=== PATIENT | female | born 1925 | race Caucasian/White ===

== ENCOUNTER → 2017-05-07 | Outpatient (CLI) | payer OTHER | LOC: BMCIMAGING 08:48 | PROVIDERS: ATTEND Internal Medicine | DX: J44.9 Chronic obstructive pulmonary disease, unspecified (principal) ==

== ENCOUNTER → 2017-05-14 | Outpatient (CLI) | payer OTHER ==
[~2017-05-14] MED LIST: IOPAMIDOL (ISOVUE 370) 100 ML BTL IV ONE
== END ==
LOC: FIMAGING 08:39
PROVIDERS: ATTEND Internal Medicine
DX: I27.20 Pulmonary hypertension, unspecified (principal); I51.7 Cardiomegaly; I25.10 Atherosclerotic heart disease of native coronary artery without angina pectoris
CPT/HCPCS: 71275; Q9967

== ENCOUNTER 2017-06-12 12:58 | Inpatient (IN) | payer OTHER ==
[2017-06-12] MEDS ORDERED: methylPREDNISolone SOD SUCC 125 MG/2 ML VIAL IVP ONE (13:36)
[2017-06-12] MEDS ORDERED: IPRATROPIUM/ALBUTEROL 3 ML DEYVIAL IH ONE (13:36)
--- NOTE | 2017-06-12 13:40 | EDPHY ---
H & P Time Seen by Provider: 06/12/17 13:21 HPI/ROS: CHIEF COMPLAINT: Shortness of breath HISTORY OF PRESENT ILLNESS: Patient is an 89-year-old female with a history of reduced ejection fraction and chronic pulmonary disease who presents emergency department with increasing shortness of breath. Patient states that she was diagnosed with a chronic pulmonary disease and has been wearing oxygen at night for a long time. She does not have a specific diagnosis to her pulmonary disease. Recently her became ill with bronchitis. 2 days ago she developed a cough. She now having increasing shortness of breath and wheezing. Her dyldhmrb-to-vem who is a physician went to see her today. She noticed that she desaturated to 70s while on 4 L of oxygen. Patient has been wearing her oxygen during the day due to her increased shortness of breath. Patient denies any chest pain. No fevers or chills. No abdominal pain. No nausea or vomiting. No leg pain or swelling. REVIEW OF SYSTEMS: My complete review of systems is negative except as mentioned in the HPI. Past Medical/Surgical History: Includes macular degeneration, pulmonary disease Past surgical history: Appendectomy, hernia repair Social history: The patient does not smoke but she has been exposed to secondhand smoke. Smoking Status: Never smoked Physical Exam: 36.9, 188/121, 101, 24 GENERAL: No acute distress, alert. HEENT: Eyes normal to inspection, normal pharynx, no signs of dehydration. NECK: [No thyromegaly, no lymphadenopathy, supple. RESPIRATORY: Diffuse wheezing. No rales or rhonchi. No accessory muscle use. CVS: Regular rate and rhythm, no rubs, murmurs, or gallops. ABDOMEN: Soft, nontender, nondistended, no organomegaly. BACK: Normal to inspection, no CVA tenderness. SKIN: Normal color, no rash, warm, dry. No pallor. EXTREMITIES: No pedal edema, no calf tenderness, no Homans sign or cords, no joint swelling. NEURO/PSYCH: Alert and oriented x3, normal mood and affect, normal motor sensory exam. Constitutional: Initial Vital Signs Temperature (C) 36.9 C 06/12/17 13:12 Heart Rate 101 H 06/12/17 13:12 Respiratory Rate 24 H 06/12/17 13:12 Blood Pressure 188/121 H 06/12/17 13:12 O2 Delivery Mode Room Air O2 (L/minute) 4 Allergies/Adverse Reactions: aspirin Allergy (Verified 06/12/17 13:12) Penicillins Allergy (Verified 06/12/17 13:12) Medical Decision Making - Diagnostics Imaging Results: Imaging Impressions Chest X-Ray 06/12/17 13:36 Impression: 1. Hyperexpanded lungs suggestive of underlying COPD similar to the prior study. 2. No new abnormality seen within the chest. ED Course/Re-evaluation: In the emergency department I discussed possible etiologies with the patient. I answered all her questions. I reviewed the patient's medical record that she brought with her. Of note the patient had a recent cardiac echo. This showed mild pulmonary hypertension as well as a reduced ejection fraction of 40-45%. The previous imaging showed findings consistent with cardiomegaly and COPD. The patient was given Solu-Medrol 125 mg IV and a DuoNeb. Laboratory studies, EKG, chest x-ray were ordered. I reviewed the patient's laboratory studies. Her CBC was normal. Chemistry panel showed normal renal function. Troponin was negative. BNP was elevated at 1400. D-dimer was 0.51. Chest x-ray: Please refer the dictated report. No focal infiltrate. COPD. I discussed the results with the patient and family. I answered all her questions. I discussed case with Dr. Franks. He went to the patient's room to evaluate the patient. He will admit the patient for further care. Sinus rhythm at 87. Normal axis. Left atrial abnormality. Poor R-wave progression. Differential Diagnosis: My differential includes but is not limited to bronchitis, pneumonia, empyema, COPD exacerbation, CHF, bacteremia, sepsis, electrolyte abnormality, sugar abnormality - Data Points Laboratory Results: Laboratory Results 06/12/17 14:00 06/12/17 14:00 06/12/17 06/12/17 06/12/17 14:00 14:00 14:00 WBC RBC Hgb Hct MCV MCH MCHC RDW Plt Count MPV Neut % (Auto) Lymph % (Auto) [place] % (Auto) Eos % (Auto) Baso % (Auto) Nucleat RBC Rel Count Absolute Neuts (auto) Absolute Lymphs (auto) Absolute Monos (auto) Absolute Eos (auto) Absolute Basos (auto) Absolute Nucleated RBC Immature Gran % Immature Gran # PT 12.7 SEC SEC (12.0-15.0) INR 0.93 (0.83-1.16) APTT 26.7 SEC SEC (23.0-38.0) D-Dimer 0.51 ug/mLFEU H ug/mLFEU (0.00-0.50) VBG Lactic Acid 0.8 mmol/L mmol/L (0.7-2.1) Sodium 135 mEq/L mEq/L (135-145) Potassium 4.6 mEq/L mEq/L (3.5-5.2) Chloride 93 mEq/L L mEq/L (97-110) Carbon Dioxide 34 mEq/l H mEq/l (22-31) Anion Gap 8 mEq/L mEq/L (8-16) BUN 15 mg/dL mg/dL (7-23) Creatinine 0.5 mg/dL L mg/dL (0.6-1.0) Estimated GFR > 60 Glucose 94 mg/dL mg/dL (70-100) Calcium 8.4 mg/dL L mg/dL (8.5-10.4) Total Bilirubin 0.5 mg/dL mg/dL (0.1-1.4) Conjugated Bilirubin 0.3 mg/dL mg/dL (0.0-0.5) Unconjugated Bilirubin 0.2 mg/dL mg/dL (0.0-1.1) AST 31 IU/L IU/L (14-46) ALT 30 IU/L IU/L (9-52) Alkaline Phosphatase 96 IU/L IU/L (38-126) Troponin I < 0.012 ng/mL ng/mL (0.000-0.034) NT-Pro-B Natriuret Pep 1410 pg/mL H pg/mL (0-450) Total Protein 6.8 g/dL g/dL (6.3-8.2) Albumin 3.9 g/dL g/dL (3.5-5.0) 06/12/17 14:00 WBC 4.39 10^3/uL 10^3/uL (3.80-9.50) RBC 4.52 10^6/uL 10^6/uL (4.18-5.33) Hgb 14.3 g/dL g/dL (12.6-16.3) Hct 43.3 % % (38.0-47.0) MCV 95.8 fL fL (81.5-99.8) MCH 31.6 pg pg (27.9-34.1) MCHC 33.0 g/dL g/dL (32.4-36.7) RDW 12.2 % % (11.5-15.2) Plt Count 144 10^3/uL L 10^3/uL (150-400) MPV 9.6 fL fL (8.7-11.7) Neut % (Auto) 72.6 % % (39.3-74.2) Lymph % (Auto) 13.7 % L % (15.0-45.0) [place] % (Auto) 11.6 % % (4.5-13.0) Eos % (Auto) 1.4 % % (0.6-7.6) Baso % (Auto) 0.5 % % (0.3-1.7) Nucleat RBC Rel Count 0.0 % % (0.0-0.2) Absolute Neuts (auto) 3.19 10^3/uL 10^3/uL (1.70-6.50) Absolute Lymphs (auto) 0.60 10^3/uL L 10^3/uL (1.00-3.00) Absolute Monos (auto) 0.51 10^3/uL 10^3/uL (0.30-0.80) Absolute Eos (auto) 0.06 10^3/uL 10^3/uL (0.03-0.40) Absolute Basos (auto) 0.02 10^3/uL 10^3/uL (0.02-0.10) Absolute Nucleated RBC 0.00 10^3/uL 10^3/uL (0-0.01) Immature Gran % 0.2 % % (0.0-1.1) Immature Gran # 0.01 10^3/uL 10^3/uL (0.00-0.10) PT INR APTT D-Dimer VBG Lactic Acid Sodium Potassium Chloride Carbon Dioxide Anion Gap BUN Creatinine Estimated GFR Glucose Calcium Total Bilirubin Conjugated Bilirubin Unconjugated Bilirubin AST ALT Alkaline Phosphatase Troponin I NT-Pro-B Natriuret Pep Total Protein Albumin Microbiology Results: MICROBIOLOGY 06/12/17 13:40 Nasal, Sinus - Swab Respiratory Panel (PCR) - Final Human Metapneumovirus Medications Given: Discontinued Medications Albuterol/Ipratropium (Duoneb) 3 ml IH EDNOW ONE Stop: 06/12/17 13:37 Last Admin: 06/12/17 14:04 Dose: 3 ml Methylprednisolone Sodium Succinate (Solu-Medrol) 125 mg IVP EDNOW ONE Stop: 06/12/17 13:37 Last Admin: 06/12/17 14:04 Dose: 125 mg Departure - Departure Disposition: [facility] Inpatient Acute Clinical Impression: Shortness of breath, Elevated brain natriuretic peptide (BNP) level COPD (chronic obstructive pulmonary disease) Qualifiers: COPD type: unspecified COPD Qualified Code(s): J44.9 - Chronic obstructive pulmonary disease, unspecified Condition: Good
--- NOTE | 2017-06-12 13:43 | CPEKG ---
Heart Rate: 87 RR Interval: 690 P-R Interval: 152 QRSD Interval: 108 QT Interval: 368 QTC Interval: 443 P [place]: 75 QRS [place]: -22 T Wave [place]: 70 EKG Severity - ABNORMAL ECG - EKG Impression: SINUS RHYTHM EKG Impression: LEFT ATRIAL ABNORMALITY EKG Impression: ABNRM R PROG, CONSIDER ASMI OR LEAD PLACEMENT Electronically Signed By: Itzel Veronica 12-Jun-2017 21:08:41
[2017-06-12 14:12] LABS: PLATELET COUNT 144 10^3/uL (150-400)
[2017-06-12 14:21] LABS: INR 0.93 (0.83-1.16); PROTIME(PATIENT) 12.7 SEC (12.0-15.0)
[2017-06-12] MEDS ORDERED: AZITHROMYCIN 250 MG TAB PO ONE ×2 (15:21→15:28)
[2017-06-12] MEDS ORDERED: ONDANSETRON 4 MG/2 ML VIAL IVP PRN (15:23)
[2017-06-12] MEDS ORDERED: ACETAMINOPHEN 325 MG TAB PO PRN (15:23)
[2017-06-12] MEDS ORDERED: ONDANSETRON DISINTEGRATING 4 MG TAB PO PRN (15:23)
--- NOTE | 2017-06-12 15:50 | GHP ---
[f rep st] HISTORY AND PHYSICAL DATE OF ADMISSION: 06/12/2017 CHIEF COMPLAINT: Shortness of breath. HISTORY OF PRESENT ILLNESS: This is an 89-year-old female with very limited past medical history, wh o presents with shortness of breath. Her had bronchitis for the past week or so. He is now recovering. She got a cough about 3 days ago. It has progressed somewhat. She is occasionally coug johnnie up some mucus plugs. She notes that she has not had any fevers. Her daughter, who is a physici an at [employer], went over to her house. She is normally using nocturnal oxygen. However, she needed 4 L at rest. When she ambulated on 4 L, she dropped down into the 70 percents. She has a mildly low ejection fraction at 40%-45%. I reviewed her echocardiogram, which shows ejection fraction as above, in addition to pulmonary hypertension with an RVSP of 50-60. She has been worked up by her primary care physician, Dr. Young recently for her breathing complaints. She had a CT angio, which showed 1 bulla, however no emphysema. Chest x-ray is hyperexpanded consistent with COPD. She never smoked, a lthough she was exposed to some secondhand smoke. PAST MEDICAL/SURGICAL HISTORY: 1. Recent breathing issues as above. 2. Pulmonary hypertension. 3. Chronic respiratory failure, on nocturnal oxygen. 4. Tachycardia, for which she is prescribed metoprolol. 5. Macular degeneration. 6. Hypothyroid. 7. Osteoarthritis. 8. Appendectomy. 9. Hernia operation. MEDICATIONS: Please see medication reconciliation. ALLERGIES: Aspirin and penicillin. FAMILY HISTORY: Reviewed and noncontributory. SOCIAL HISTORY: She lives with her . They do not have help at home. She does not drink or s moke. REVIEW OF SYSTEMS: A 10-point review of systems is conducted and is negative except per HPI. PHYSICAL EXAM: VITAL SIGNS: Blood pressure 188/121, heart rate 101, respiration rate 24, satting at 98% on 4 L, temperature is 36.9. GENERAL: The patient is a very pleasant female who is accompanied by her son and [id number]. She is in no significant distress. HEENT: Normocephalic, atraumat ic. CARDIOVASCULAR: Regular rate and rhythm. There are no murmurs, rubs, or gallops. PULMONARY: Wet sounding cough. She is in mild respiratory distress with increased work of breathing. She has d iffuse wheezes with some rhonchi in her bilateral lung hastings. ABDOMEN: Soft, nontender, nondistend ed. SKIN: No rash. : No Flores. NEUROLOGIC: Alert and oriented x3. She is moving all extremit ies. PSYCHIATRIC: Normal mood and affect. LABS: Platelets are 144, INR 0.93, D-dimer is 0.51, lactate is 0.8, bicarb is 34, creatinine 0.5, BN P is 1,410. DATA: 1. I discussed this with Dr. Regan. We will admit to Med/Surg. 2. I personally viewed and interpreted her chest x-ray. This shows hyperexpanded lung hastings. No c ardiomegaly. No acute infiltrates. 3. I personally viewed and interpreted her EKG. This shows sinus rhythm. She has borderline R-wave progression. IMPRESSION AND PLAN: An 89-year-old female, with acute on chronic respiratory failure. 1. Acute on chronic respiratory failure: We will treat for chronic obstructive pulmonary disease ex acerbation. I suspect she has chronic obstructive lung disease with an acute viral bronchitis. We w ill place her on oxygen and follow closely. D-dimer is 0.51, which is negative given her age. 2. Chronic obstructive pulmonary disease with acute exacerbation: She does not have a significant s moking history. However, findings consistent with acute on chronic lung obstructive lung disease, in cludes wheezing, elevated bicarb, hyperexpansion on chest x-ray. We will treat her with prednisone, nebulizers, check respiratory pathogen polymerase chain reaction. 3. Pulmonary hypertension: May account for some of her hypoxia. 4. Hypothyroid: Synthroid. 5. Tachycardia: This may be related to her lung disease. She had been started on metoprolol years ago. We will continue this for now. 6. Venous thromboembolism risk is moderate to high. I have given her Lovenox. 7. Code status: She would like to be full. Her family will reconsider as an outpatient her advance directives. /[id number]/MODL
--- NOTE | 2017-06-12 16:29 | PDMN ---
Medical Necessity Medical necessity: C/M review: est. > 2 MN LOS for eval and TX of acute on chronic respiratory failure, suspect COPD with acute viral bronchitis, COPD with acute exacerbation, shortness of breath, tachycardia, requiring ongoing oral prednisone, oral azithromycin, cardiac monitoring, pulse oximetry, supplemental O2, comorbid chronic respiratory failure on O2, pulmonary hypertension, hypothyroidism, macular degeneration, osteoarthritis per H/P.
[2017-06-12] MEDS: PRESERVISION AREDS2 FORMULA EYE VIT 1 EACH PO SCH (18:24)
[2017-06-12] MEDS: LATANOPROST 0.005% 2.5 ML OPHT DROPS EACHEYE SCH (20:46)
[2017-06-13 05:19] LABS: PLATELET COUNT 141 10^3/uL (150-400)
[2017-06-13] MEDS: METOPROLOL SUCCINATE XR 50 MG TAB PO SCH (07:26)
[2017-06-13] MEDS: predniSONE 20 MG TAB PO SCH (07:26)
[2017-06-13] MEDS: LEVOTHYROXINE 88 MCG TAB PO SCH (07:26)
[2017-06-13] MEDS: TIMOLOL 0.5% 15 ML OPHT.BTL EACHEYE SCH (07:27)
[2017-06-13] MEDS: PRESERVISION AREDS2 FORMULA EYE VIT 1 EACH PO SCH ×2 (09:00→20:28)
[2017-06-13] MEDS: ENOXAPARIN 40 MG/0.4 ML SYR SC SCH (09:00)
[2017-06-13] MEDS: AZITHROMYCIN 250 MG TAB PO SCH (09:00)
--- NOTE | 2017-06-13 12:12 | HOSPPROG ---
Hospitalist Progress Note Assessment/Plan: 89yo F with hx of COPD presenting with acute on chronic resp failure # acute on chronic resp failure: at baseline only requires o2 at night but prior to arrival was requiring 4L to maintain o2 sats > 70, improved but still on 4L of o2, 2/2 next # copd with acute exacerbation: this seems to be a new dx for her, hyperexpanded lungs noted on personal review of cxr, co2 elevated c/w chronic co2 retention, bs diminshed throughout, started on scheduled nebs, continue pred and azithromycin # viral bronchitis: with resp pcr shwoing human metapneumovirus, droplet precaution # pulm htn: RSVP of 50-60 in setting of chronic lung disease as above # mild systolic CHF: with EF of 40-45%, no e/o decompensation # IP status Patient new to [facility] [place] are. Old records reviewed and summarozed as above. Objective: Vital Signs Temp Pulse Resp BP Pulse Ox 37.2 C 77 18 155/89 H 96 06/13/17 11:24 06/13/17 11:24 06/13/17 11:24 06/13/17 11:24 06/13/17 11:24 Laboratory Results 06/13/17 04:23 06/13/17 04:23 06/12/17 06/13/17 06/14/17 05:59 05:59 05:59 Intake Total 200 Balance 200 PT 12.7 SEC (12.0-15.0) 06/12/17 14:00 INR 0.93 (0.83-1.16) 06/12/17 14:00 ICD10 Worksheet Patient Problems: Problems Problem Status Onset Shortness of breath Acute COPD (chronic obstructive pulmonary disease) Acute Elevated brain natriuretic peptide (BNP) level Acute
[2017-06-13] MEDS ORDERED: ALBUTEROL 3 ML DEYVIAL IH PRN (12:55)
[2017-06-13] MEDS: guaiFENesin 600 MG TAB.ER PO SCH ×2 (13:11→20:00)
--- NOTE | 2017-06-13 16:26 | ASMTCMCOM ---
CM Note CM Note Notes: Pt admitted with suspected COPD exacerbation. Normally resides at home with her Scott & has 2 children that live locally, one of which is a [place] MD. Pt is legally blind & normally wears O2 at night only. Pt is now on 4 lpm continuous O2. OT recommending home no needs. PT order placed; awaiting eval. CM will follow. Date Signed: 06/13/2017 04:26 PM Electronically Signed By:Sharon Cody RN
[2017-06-13] MEDS: IPRATROPIUM/ALBUTEROL 3 ML DEYVIAL IH SCH ×2 (16:38→20:46)
[2017-06-13] MEDS: LATANOPROST 0.005% 2.5 ML OPHT DROPS EACHEYE SCH (20:01)
[2017-06-14] MEDS: IPRATROPIUM/ALBUTEROL 3 ML DEYVIAL IH SCH ×4 (06:17→20:24)
[2017-06-14] MEDS: PRESERVISION AREDS2 FORMULA EYE VIT 1 EACH PO SCH ×2 (07:54→20:06)
[2017-06-14] MEDS: LEVOTHYROXINE 88 MCG TAB PO SCH (07:54)
[2017-06-14] MEDS: METOPROLOL SUCCINATE XR 50 MG TAB PO SCH (07:55)
[2017-06-14] MEDS: AZITHROMYCIN 250 MG TAB PO SCH (07:55)
[2017-06-14] MEDS: ENOXAPARIN 40 MG/0.4 ML SYR SC SCH (07:55)
[2017-06-14] MEDS: TIMOLOL 0.5% 15 ML OPHT.BTL EACHEYE SCH (07:56)
[2017-06-14] MEDS: guaiFENesin 600 MG TAB.ER PO SCH ×2 (07:56→20:05)
[2017-06-14] MEDS: predniSONE 20 MG TAB PO SCH (09:45)
--- NOTE | 2017-06-14 15:22 | HOSPPROG ---
Hospitalist Progress Note Assessment/Plan: 89yo F with hx of COPD presenting with acute on chronic resp failure # acute on chronic resp failure: at baseline only requires o2 at night but prior to arrival was requiring 4L to maintain o2 sats > 70, improved but still on 4L of o2, 2/2 next # copd with acute exacerbation: this seems to be a new dx for her, hyperexpanded lungs noted on personal review of cxr, co2 elevated c/w chronic co2 retention, bs diminshed throughout, started on scheduled nebs, continue pred and azithromycin. Still very diminshed bs throughout # viral bronchitis: with resp pcr showing human metapneumovirus, droplet precaution # pulm htn: RSVP of 50-60 in setting of chronic lung disease as above # mild systolic CHF: with EF of 40-45%, no e/o decompensation # IP status Reviewed care plan with patients daughter in law over the phone Subjective: no significant overnight events, patient not feeling much better Objective: Vital Signs Temp Pulse Resp BP Pulse Ox 37.0 C 87 18 143/78 H 97 06/14/17 15:03 06/14/17 15:03 06/14/17 15:03 06/14/17 15:03 06/14/17 15:03 Laboratory Results 06/13/17 04:23 06/13/17 04:23 06/13/17 06/14/17 06/15/17 05:59 05:59 05:59 Intake Total 200 700 Balance 200 700 PT 12.7 SEC (12.0-15.0) 06/12/17 14:00 INR 0.93 (0.83-1.16) 06/12/17 14:00 awake alert anicteric op clear rrr no mrg dec bs throughout soft nt nd no cce warm dry well perfsued oriented appropriate - Time Spent With Patient Time Spent with Patient: greater than 35 minutes Time Spent with Patient: Greater than 35 minutes spent on this patients care, greater than 50% of time spent counseling, educating, and coordinating care regarding the above mentioned plan. ICD10 Worksheet Patient Problems: Problems Problem Status Onset COPD (chronic obstructive pulmonary disease) Acute Elevated brain natriuretic peptide (BNP) level Acute Shortness of breath Acute
[2017-06-14] MEDS: LATANOPROST 0.005% 2.5 ML OPHT DROPS EACHEYE SCH (20:07)
[2017-06-15] MEDS: IPRATROPIUM/ALBUTEROL 3 ML DEYVIAL IH SCH ×4 (04:59→22:27)
[2017-06-15] MEDS: LEVOTHYROXINE 88 MCG TAB PO SCH (06:14)
[2017-06-15] MEDS: AZITHROMYCIN 250 MG TAB PO SCH (08:42)
[2017-06-15] MEDS: METOPROLOL SUCCINATE XR 50 MG TAB PO SCH (08:42)
[2017-06-15] MEDS: guaiFENesin 600 MG TAB.ER PO SCH ×2 (08:42→20:53)
[2017-06-15] MEDS: PRESERVISION AREDS2 FORMULA EYE VIT 1 EACH PO SCH ×2 (08:43→20:53)
[2017-06-15] MEDS: predniSONE 20 MG TAB PO SCH (08:43)
[2017-06-15] MEDS: ENOXAPARIN 40 MG/0.4 ML SYR SC SCH (08:43)
[2017-06-15] MEDS: TIMOLOL 0.5% 15 ML OPHT.BTL EACHEYE SCH (08:45)
--- NOTE | 2017-06-15 13:30 | HOSPPROG ---
Hospitalist Progress Note Assessment/Plan: 89yo F with hx of COPD presenting with acute on chronic resp failure # acute on chronic resp failure: at baseline only requires o2 at night but prior to arrival was requiring 4L to maintain o2 sats > 70, improved but still on 4L of o2, 2/2 next # copd with acute exacerbation: this seems to be a new dx for her, hyperexpanded lungs noted on personal review of cxr, co2 elevated c/w chronic co2 retention, bs diminshed throughout, started on scheduled nebs, continue pred and azithromycin. Still very diminshed bs throughout but improved and now with wheeze, cough more productive # urinary frequency: UA with leuk esterase and wbc, sending for culture # viral bronchitis: with resp pcr showing human metapneumovirus, droplet precaution # pulm htn: RSVP of 50-60 in setting of chronic lung disease as above # mild systolic CHF: with EF of 40-45%, no e/o decompensation # IP status Subjective: no signficiant overnight events patient feels a bit better but still very weak and sob Objective: Vital Signs Temp Pulse Resp BP Pulse Ox 37.2 C 114 H 20 167/100 H 94 06/15/17 12:00 06/15/17 12:00 06/15/17 12:00 06/15/17 12:00 06/15/17 12:00 Laboratory Results 06/13/17 04:23 06/13/17 04:23 06/14/17 06/15/17 06/16/17 05:59 05:59 05:59 Intake Total 700 700 250 Output Total 125 Balance 700 700 125 PT 12.7 SEC (12.0-15.0) 06/12/17 14:00 INR 0.93 (0.83-1.16) 06/12/17 14:00 awake alert anicteric op clear rrr no mrg dec bs throughout soft nt nd no cce warm dry well perfsued oriented appropriate ICD10 Worksheet Patient Problems: Problems Problem Status Onset COPD (chronic obstructive pulmonary disease) Acute Elevated brain natriuretic peptide (BNP) level Acute Shortness of breath Acute chronic disease mgmt/transitional care Acute
--- NOTE | 2017-06-15 14:11 | ASMTCMCOM ---
CM Note CM Note Notes: PT/OT recommending home with support of spouse. Spoke with RN; reports pt is weaker today. CM will continue to follow. Dc plan- TBD Date Signed: 06/15/2017 02:10 PM Electronically Signed By:Sharon Cody RN
[2017-06-15] MEDS: LATANOPROST 0.005% 2.5 ML OPHT DROPS EACHEYE SCH (20:54)
[2017-06-16] MEDS: LEVOTHYROXINE 88 MCG TAB PO SCH (05:26)
[2017-06-16] MEDS: IPRATROPIUM/ALBUTEROL 3 ML DEYVIAL IH SCH ×4 (05:31→21:45)
[2017-06-16 05:34] LABS: PLATELET COUNT 128 10^3/uL (150-400)
[2017-06-16] MEDS: PRESERVISION AREDS2 FORMULA EYE VIT 1 EACH PO SCH ×2 (08:03→22:09)
[2017-06-16] MEDS: ENOXAPARIN 40 MG/0.4 ML SYR SC SCH (08:03)
[2017-06-16] MEDS: guaiFENesin 600 MG TAB.ER PO SCH ×2 (08:04→22:09)
[2017-06-16] MEDS: METOPROLOL SUCCINATE XR 50 MG TAB PO SCH (08:04)
[2017-06-16] MEDS: AZITHROMYCIN 250 MG TAB PO SCH (08:04)
[2017-06-16] MEDS: predniSONE 20 MG TAB PO SCH (08:05)
[2017-06-16] MEDS: TIMOLOL 0.5% 15 ML OPHT.BTL EACHEYE SCH (08:06)
--- NOTE | 2017-06-16 17:41 | ASMTCMCOM ---
CM Note CM Note Notes: CM spoke w/pt re; homecare. At this time pt declines stating she will not be homebound. Pt lives at [facility] with her in the [place]. Pt is legally blind but has the assistance of and local children. Pt gave CM permission to discuss with children. Anticipate pt will dc home w/support of when medically stable. CM available for any changes. DC Plan: Independent Date Signed: 06/16/2017 05:40 PM Electronically Signed By:Ana Mcneal RN
--- NOTE | 2017-06-16 18:57 | HOSPPROG ---
Hospitalist Progress Note Assessment/Plan: 89yo F with hx of COPD presenting with acute on chronic resp failure # acute on chronic resp failure: at baseline only requires o2 at night but prior to arrival was requiring 4L to maintain o2 sats > 70, improved but still on 4L of o2, daughter notes that patient has been on 2-3L for the last several months, 2/2 next # copd with acute exacerbation: this seems to be a new dx for her, hyperexpanded lungs noted on personal review of cxr, co2 elevated c/w chronic co2 retention, bs diminshed throughout, started on scheduled nebs, continue pred and azithromycin. BS improved overnight, scattered wheeze still # deconditioning: patient has gotten progressively weaker during this hospitalization, working with pt/ot # urinary frequency: UA with leuk esterase and wbc, sending for culture # viral bronchitis: with resp pcr showing human metapneumovirus, droplet precaution # pulm htn: RSVP of 50-60 in setting of chronic lung disease as above # mild systolic CHF: with EF of 40-45%, no e/o decompensation # IP status--likely will be ready for dc home in next 1-2 days Subjective: no significant overnight events, patient feeling better but notes that she is quite weak Objective: Vital Signs Temp Pulse Resp BP Pulse Ox 36.9 C 95 16 140/78 H 96 06/16/17 16:00 06/16/17 16:00 06/16/17 16:00 06/16/17 18:19 06/16/17 16:00 Laboratory Results 06/16/17 04:55 06/16/17 04:55 06/15/17 06/16/17 06/17/17 05:59 05:59 05:59 Intake Total 700 990 300 Output Total 1125 600 Balance 700 -135 -300 PT 12.7 SEC (12.0-15.0) 06/12/17 14:00 INR 0.93 (0.83-1.16) 06/12/17 14:00 awake alert anicteric op clear rrr no mrg dec bs throughout soft nt nd no cce warm dry well perfsued oriented appropriate ICD10 Worksheet Patient Problems: Problems Problem Status Onset COPD (chronic obstructive pulmonary disease) Acute Elevated brain natriuretic peptide (BNP) level Acute Shortness of breath Acute chronic disease mgmt/transitional care Acute
[2017-06-16] MEDS: LATANOPROST 0.005% 2.5 ML OPHT DROPS EACHEYE SCH (22:09)
[2017-06-17] MEDS: hydrALAZINE 10 MG TAB PO PRN ×2 (00:08→15:40)
[2017-06-17] MEDS: LEVOTHYROXINE 88 MCG TAB PO SCH (05:19)
[2017-06-17] MEDS: IPRATROPIUM/ALBUTEROL 3 ML DEYVIAL IH SCH ×4 (05:29→22:02)
[2017-06-17] MEDS: guaiFENesin 600 MG TAB.ER PO SCH ×2 (08:48→20:34)
[2017-06-17] MEDS: METOPROLOL SUCCINATE XR 50 MG TAB PO SCH (08:48)
[2017-06-17] MEDS: PRESERVISION AREDS2 FORMULA EYE VIT 1 EACH PO SCH ×2 (08:48→20:34)
[2017-06-17] MEDS: TIMOLOL 0.5% 15 ML OPHT.BTL EACHEYE SCH (08:49)
[2017-06-17] MEDS: predniSONE 20 MG TAB PO SCH (08:49)
[2017-06-17] MEDS: AZITHROMYCIN 250 MG TAB PO SCH (08:49)
[2017-06-17] MEDS: ENOXAPARIN 40 MG/0.4 ML SYR SC SCH (08:49)
--- NOTE | 2017-06-17 14:39 | HOSPPROG ---
Hospitalist Progress Note Assessment/Plan: 89yo F with hx of COPD presenting with acute on chronic resp failure # acute on chronic resp failure-at baseline has been on 2-3L for the last several months- acute change secondary to COPD exacerbation -continue care below # copd with acute exacerbation- chest x-ray(personally reviewed and interpreted ) hyperexpanded lungs no acute infiltrates, co2 elevated Oxygen saturations 92% on 1 L-I weaned oxygen while bedside - continue inhaled Beta agonist - continue p.o. Steroids - continue p.o. Antibiotics - wean O2 as able # Acute leukocytosis- suspect secondary to steroids has increased since admission # deconditioning-patient has gotten progressively weaker during this hospitalization - continue pt/ot # acute UTI- patient with frequency and dysuria- urine culture with E coli pansensitive - starting levofloxacin p.o. # viral bronchitis: with resp pcr showing human metapneumovirus, droplet precaution # pulm htn: RSVP of 50-60 in setting of chronic lung disease as above # mild systolic CHF: with EF of 40-45%, no e/o decompensation # IP status-potential disposition tomorrow to home with home health I have discussed the case with the RN-continue current care Subjective: Breathing so much better Objective: Vital Signs Temp Pulse Resp BP Pulse Ox 36.8 C 89 20 161/93 H 91 L 06/17/17 12:00 06/17/17 12:00 06/17/17 12:00 06/17/17 12:00 06/17/17 12:00 Microbiology 06/15/17 10:30 Urine Culture - Final Urine,Clean Catch Escherichia Coli Laboratory Results 06/16/17 04:55 06/16/17 04:55 06/16/17 06/17/17 06/18/17 05:59 05:59 05:59 Intake Total 990 300 Output Total 1125 600 Balance -135 -300 PT 12.7 SEC (12.0-15.0) 06/12/17 14:00 INR 0.93 (0.83-1.16) 06/12/17 14:00 - Physical Exam Constitutional: chronically ill appearing Eyes: anicteric sclera Ears, Nose, Mouth, Throat: moist mucous membranes Cardiovascular: regular rate and rhythym, systolic murmur Respiratory: no respiratory distress, expiratory wheeze Gastrointestinal: normoactive bowel sounds Genitourinary: no bladder fullness Skin: warm Musculoskeletal: No asymmetric calves Neurologic: AAOx3 Psychiatric: interacting appropriately Lymph, Heme, Immunologic: no cervical LAD ICD10 Worksheet Patient Problems: Problems Problem Status Onset COPD (chronic obstructive pulmonary disease) Acute Elevated brain natriuretic peptide (BNP) level Acute Shortness of breath Acute chronic disease mgmt/transitional care Acute
[2017-06-17] MEDS: LATANOPROST 0.005% 2.5 ML OPHT DROPS EACHEYE SCH (20:35)
[2017-06-18] MEDS: LEVOTHYROXINE 88 MCG TAB PO SCH (05:28)
[2017-06-18] MEDS: IPRATROPIUM/ALBUTEROL 3 ML DEYVIAL IH SCH ×2 (05:51→12:56)
[2017-06-18 07:43] VITALS: BP 160/90; TEMP 97.3
--- NOTE | 2017-06-18 09:13 | PDIAF ---
- Diagnosis Diagnosis: viral pulmonary infection Code Status: Full Code - Medication Management Discharge Medications: Medications to Continue on Transfer C/E/Zn/Cu/OM3/DHA/EPA/LUT/ZEAX [Preservision Areds 2 Softgel] 1 cap PO BID 06/12 [Last Taken 06/12/17 09:00] Latanoprost 0.005% [Xalatan 0.005% (*)] 1 drops EACHEYE HS 06/12/17 [Last Taken 06/11/17 21:00] Levothyroxine [Synthroid 88 mcg (*)] 88 mcg PO DAILY06 06/12/17 [Last Taken 08:00] Metoprolol Succinate Xr [Toprol Xl 50 mg (*)] 50 mg PO DAILY 06/12/17 [Last Taken 06/12/17 09:00] Timolol [Betimol] 1 drop EACHEYE DAILY 06/12/17 [Last Taken 06/12/17 09:00] Ipratropium/Albuterol [Combivent Respimat Inhal [place](*)] 1 inh IH QID #1 mdi [Last Taken Unknown] guaiFENesin [Mucinex 600 MG (*)] 1,200 mg PO BID #30 tab.er 06/18/17 [Last Taken Unknown] levOFLOXACIN [levAQUIN (*)] 750 mg PO Q2D@1000 #3 tab 06/18/17 [Last Taken Unknown] predniSONE [predniSONE TAPER] 10 mg PO DAILY #13 ea 06/18/17 [Last Taken Unknown ] Discharge Medications: Refer to the Discharge Home Medication list for PRN reason. - Orders Services needed: Home Care, Registered Nurse, Physical Therapy Home Care Face to Face: I certify that this patient was under my care and that I had the required [id number]-tx-syxy encounter meeting the encounter requirements on the discharge day. My findings support the fact that the patient is homebound as defined in Home Care Face to Face Continued: CMS Chapter 7 Medicare Benefits Manual 30.1.1 , The condition of the patient is such that there exists a normal inability to leave home and consequently, leaving home would require a considerable and taxing effort. Isolation Type: Contact Isolation, Droplet Isolation Diet Recommendation: no restrictions on diet Diet Texture: Regular Texture Diet - Follow Up Care Current Providers and Referrals: Bonnie Young MD [Primary Care Provider] - As per Instructions
[2017-06-18] MEDS: predniSONE 20 MG TAB PO SCH (09:20)
[2017-06-18] MEDS: guaiFENesin 600 MG TAB.ER PO SCH (09:20)
[2017-06-18] MEDS: PRESERVISION AREDS2 FORMULA EYE VIT 1 EACH PO SCH (09:21)
[2017-06-18] MEDS: TIMOLOL 0.5% 15 ML OPHT.BTL EACHEYE SCH (09:21)
[2017-06-18] MEDS: METOPROLOL SUCCINATE XR 50 MG TAB PO SCH (09:21)
[2017-06-18] MEDS: ENOXAPARIN 40 MG/0.4 ML SYR SC SCH (09:21)
--- NOTE | 2017-06-18 10:35 | ASMTCMCOM ---
CM Note CM Note Notes: Per MD, pt has agreed to homecare, CM spoke with pt and dtr in [facility], pt will get RN/PTSunita Logan at [facility] notififed. DC Plan: Homecare/ [facility] (RN/PT) Date Signed: 06/18/2017 10:34 AM Electronically Signed By:Ana Mcneal RN
--- NOTE | 2017-06-18 10:36 | ASMTLACE ---
LACE Length of stay for Answers: 4-6 days current admission Acuity / Level of Answers: Yes Care: Did the patient have an inpatient admission? Comorbidities - select Answers: Chronic pulmonary disease all that apply Congestive heart failure # of Emergency department Answers: 1-2 visits in the last 6 months Score: 12 Date Signed: 06/18/2017 10:35 AM Electronically Signed By:Ana Mcneal RN
[2017-06-18 11:44] VITALS: O2SAT 93
[2017-06-18 13:08] VITALS: PULSE 86; RESP 17
--- NOTE | 2017-06-18 15:51 | GDS ---
[f rep st] DISCHARGE SUMMARY DISCHARGE DIAGNOSES: Include: 1. Acute obstructive pulmonary disease exacerbation. 2. Acute hypoxic respiratory failure secondary to chronic obstructive pulmonary disease exacerbation . 3. Acute human metapneumovirus infection. 4. Acute Escherichia coli urinary tract infection. 5. Chronic mild systolic heart failure. 6. Chronic pulmonary hypertension secondary to lung disease. HISTORY OF PRESENT ILLNESS: An 89-year-old female with a history of recent diagnosis of chronic bron chitis and chronic respiratory failure, who presents with complaints of shortness of breath. For det ails of the patient's initial presentation, please see the history and physical dated 06/12/2017. CONSULTATIVE SERVICES: None. PROCEDURES: None. HOSPITAL COURSE: 1. Acute hypoxic respiratory failure secondary to COPD exacerbation: The patient was treated with s ystemic steroid bursts, inhaled beta agonists, and antibiotics. On the day of disposition, her oxyge n saturations had been weaned down to 1 L requirement at rest, which is near her recent baseline if n ot better than her recent baseline. 2. Acute human metapneumovirus: Suspect this is the trigger for her COPD exacerbation. Patient rec eived the supportive care as outlined above. 3. New diagnosis chronic bronchitis/COPD: Patient was provided a prednisone taper in the outpatient setting, as well as a Combivent inhaler, which is a new medication for her. She will continue to fo llow in the outpatient setting with Dr. Young for long-term management of her chronic lung disease. 4. Acute E coli UTI: Patient was diagnosed by urine culture after describing dysuria and frequency. She was initiated on levofloxacin and will complete a 7-day course. MEDICATIONS AT THE TIME OF TRANSFER: Please reference the medication reconciliation printed on 06/18. Pending studies at the time of this dictation are none. FOLLOWUP APPOINTMENTS: Include with Dr. Bonnie Young in 7-10 days post discharge followup. TIME SPENT: I spent greater than 30 minutes in the planning and coordination of this discharge. /[id number]/MODL
--- NOTE | 2017-06-18 17:55 | ASDISCHSUM ---
Discharge Information Plan Status:Home with Home Health Medically Cleared to Leave: Discharge Date:06/18/2017 02:30 PM CM D/C Disposition:Home Health Service ADT D/C Disposition:Home Health Service Projected Discharge Date:06/18/2017 11:00 AM Transportation at D/C:Family Discharge Delay Reason: Follow-Up Date:06/18/2017 11:00 AM Discharge Slot: Final Diagnosis: Placement Information Referral Type:*Home Health Care Services Referral ID:[id number] Provider Name:[facility] [address] Address 2: City:[place] Selection Factors: State:[place] Patient Contact Information Contact Name:ELADIA Relationship: Address:[address] Work Phone: City:[place] Alternate Phone: State/Zip Code:[place] [address] Email: Financial Information Financial Class:Medicare Primary Plan Desc:MEDICARE INPATIENT Primary Plan Number:[id number] Secondary Plan Desc:[facility] Secondary Plan Number:[id number] Assessment Information LACE LACE Length of stay for Answers: 4-6 days current admission Acuity / Level of Answers: Yes Care: Did the patient have an inpatient admission? Comorbidities - select Answers: Chronic pulmonary disease all that apply Congestive heart failure # of Emergency department Answers: 1-2 visits in the last 6 months Score: 12 Date Signed: 06/18/2017 10:35 AM Electronically Signed By:Ana Mcneal RN [facility] CM Progress Note CM Note CM Note Notes: Pt admitted with suspected COPD exacerbation. Normally resides at home with her Scott & has 2 children that live locally, one of which is a [place] MD. Pt is legally blind & normally wears O2 at night only. Pt is now on 4 lpm continuous O2. OT recommending home no needs. PT order placed; awaiting eval. CM will follow. Date Signed: 06/13/2017 04:26 PM Electronically Signed By:Sharon Cody RN [facility] CM Progress Note CM Note CM Note Notes: PT/OT recommending home with support of spouse. Spoke with RN; reports pt is weaker today. CM will continue to follow. Dc plan- TBD Date Signed: 06/15/2017 02:10 PM Electronically Signed By:Sharon Cody RN [facility] CM Progress Note CM Note CM Note Notes: CM spoke w/pt re; homecare. At this time pt declines stating she will not be homebound. Pt lives at [facility] with her in the [place]. Pt is legally blind but has the assistance of and local children. Pt gave CM permission to discuss with children. Anticipate pt will dc home w/support of when medically stable. CM available for any changes. DC Plan: Independent Date Signed: 06/16/2017 05:40 PM Electronically Signed By:Ana Mcneal RN [facility] CM Progress Note CM Note CM Note Notes: Per MD, pt has agreed to homecare, CM spoke with pt and dtr in [facility], pt will get RN/PT. Logan at [facility] notififed. DC Plan: Homecare/ [facility] (RN/PT) Date Signed: 06/18/2017 10:34 AM Electronically Signed By:Ana Mcneal RN Case Management Discharge Plan Note Case Management Discharge Discharge Order Complete? Answers: Yes Patient to Obtain Answers: Independently Medications Transportation Arranged Answers: Family/Friends Family Notified Answers: Yes Discharge Comments Notes: D/w , final orders faxed. Desmond at [facility] notified of pt's discharge, RN to call report. Date Signed: 06/18/2017 10:49 AM Electronically Signed By:Ana Mcneal RN Intervention Information Intervention Type:*IM-Signed Date of Service:06/18/2017 10:51 AM Patient Type:Inpatient Staff Member:Delores Joseph Hours: Discipline: Severity: Comment:
== END 2017-06-18 14:30 | disposition home health service (06) | DRG 189 ==
LOC: OBSVTOIN 15:23 → F3E 17:41
PROVIDERS: ADMIT Student in an Organized Health Care Education/Training Program; ATTEND Student in an Organized Health Care Education/Training Program
DX: J96.21 Acute and chronic respiratory failure with hypoxia (principal); J44.1 Chronic obstructive pulmonary disease with (acute) exacerbation; N39.0 Urinary tract infection, site not specified; I50.22 Chronic systolic (congestive) heart failure; B97.81 Human metapneumovirus as the cause of diseases classified elsewhere; B96.20 Unspecified Escherichia coli [E. coli] as the cause of diseases classified elsewhere; I27.29 Other secondary pulmonary hypertension; E03.9 Hypothyroidism, unspecified; Z88.0 Allergy status to penicillin
CPT/HCPCS: 96374; 97116-GP; 97161-GP; 97166-GO; 97530-GP; 97535-GO; G8978-GP-CJ; G8979-GP-CI; G8980-GP-CI; G8987-GO-CJ; G8988-GO-CI; G8989-GO-CI; J1650; J2930; J7512; J7613